=== PATIENT | female | born 1960 | race Caucasian/White ===

== ENCOUNTER → 2021-10-15 | Day surgery (SDC) | payer BC ==
[~2021-10-15] VITALS: Ht 167.6 cm; Wt 72.1 kg
[~2021-10-15] MED LIST: ASPIRIN 325 MG TAB ONE; ASPIRIN81 MG PO; CRESTOR10 MG PO; FARXIGA10 MG PO; FENTANYL CITRATE/PF 100MCG/2 ML INJ ONE; HEPARIN SOD (PORCINE) 1000 UNIT/ML 30ML ONE; HEPARIN SOD/SOD CHLORIDE 2,000 ML ONE; IOPAMIDOL 370 MG/ML 100 ML INFUS..BTL INJ ONE; JARDIANCE10 MG; LASIX40 MG PO; LIDOCAINE HCL 1% LOCAL INJ 20 ML VIAL ONE; MIDAZOLAM HCL 2 MG/2 ML VIAL ONE; NITROGLYCERIN/D5W 200 MCG/ML 250 ML ONE; SODIUM CHLORIDE 0.9% 1000ML 1,000 ML ONE; SYNTHROID50 MCG PO; TICAGRELOR 90 MG TABLET ONE; VERAPAMIL HCL 2.5 MG/ML 2 ML VIAL ONE
[2021-10-15 13:09] LABS: BASOPHILS % 0.5 % (0.0-1.0); EOSINOPHILS # (AUTO) 0.2 (0.0-0.4); EOSINOPHILS % 1.8 % (0.0-6.0); HEMOGLOBIN 15.4 g/dL (12.0-16.0); LYMPHOCYTES # (AUTO) 2.9 (1.0-3.2); LYMPHOCYTES % 34.8 % (18.0-39.1); MEAN CORPUSCULAR HEMOGLOBIN 27.8 pg (28-32); MEAN CORPUSCULAR HGB CONC 32.8 g/dL (31-35); MEAN CORPUSCULAR VOLUME 84.8 fL (81-99); MONOCYTES # (AUTO) 0.6 (0.2-0.8); MONOCYTES % 6.8 % (4.4-11.3); NEUTROPHILS # (AUTO) 4.6 (2.1-6.9); NEUTROPHILS % 55.9 % (38.7-80.0); PLATELET COUNT 200 x10e3/uL (140-360); RED BLOOD COUNT 5.54 x10e6/uL (3.6-5.1); RED CELL DISTRIBUTION WIDTH 13.1 % (11.7-14.4)
[2021-10-15 13:50] LABS: CHOL/HDL RATIO 4.7 (3.0-3.6)
[2021-10-15 13:53] LABS: ALBUMIN 3.1 g/dL (3.5-5.0); ALBUMIN/GLOBULIN RATIO 0.8 (0.8-2.0); ANION GAP 18.2 mmol/L (8-16); CALCIUM 9.3 mg/dL (8.4-10.2); CREATININE, SERUM 1.9 mg/dL (0.57-1.11); POTASSIUM 4.2 mmol/L (3.5-5.1)
[2021-10-15 13:57] LABS: INR 0.8; PROTHROMBIN TIME 11.8 seconds (11.9-14.5)
[2021-10-15 13:58] LABS: PARTIAL THROMBOPLASTIN TIME 27.9 seconds (23.8-35.5)
== END | disposition home or self-care (01) ==
LOC: CATH LAB 11:51
PROVIDERS: ATTEND Internal Medicine Cardiovascular Disease
DX: I25.10 Atherosclerotic heart disease of native coronary artery without angina pectoris (principal); R94.39 Abnormal result of other cardiovascular function study; I73.9 Peripheral vascular disease, unspecified; E78.00 Pure hypercholesterolemia, unspecified; E11.9 Type 2 diabetes mellitus without complications; E07.9 Disorder of thyroid, unspecified; Z20.822 Contact with and (suspected) exposure to COVID-19; Z79.82 Long term (current) use of aspirin; Z79.899 Other long term (current) drug therapy
CPT/HCPCS: 36415; 76937; 80053; 80061; 85025; 85610; 85730; 92928; 92929; C1725 ×2; C1769; C1874; C1887; J1644; J2001; J2250; J3010; J7030; Q9967; U0002; 92920; 92921; 93458; 99152; 99153

== ENCOUNTER 2022-02-21 08:32 | Inpatient (IN) | payer BC ==
[~2022-02-21] VITALS: Ht 167.6 cm; Wt 72.1 kg
[~2022-02-21 08:32] MED LIST changes: -ASPIRIN 325 MG TAB ONE; -FENTANYL CITRATE/PF 100MCG/2 ML INJ ONE; -HEPARIN SOD (PORCINE) 1000 UNIT/ML 30ML ONE; -HEPARIN SOD/SOD CHLORIDE 2,000 ML ONE; -IOPAMIDOL 370 MG/ML 100 ML INFUS..BTL INJ ONE; -LIDOCAINE HCL 1% LOCAL INJ 20 ML VIAL ONE; -MIDAZOLAM HCL 2 MG/2 ML VIAL ONE; -NITROGLYCERIN/D5W 200 MCG/ML 250 ML ONE; -SODIUM CHLORIDE 0.9% 1000ML 1,000 ML ONE; -TICAGRELOR 90 MG TABLET ONE; -VERAPAMIL HCL 2.5 MG/ML 2 ML VIAL ONE
[2022-02-21] MEDS ORDERED: DEXTROSE 50% SYRINGE 50 ML IV PRN (09:45)
[2022-02-21 09:57] LABS: BASOPHILS % 0.2 % (0.0-1.0); EOSINOPHILS % 0.1 % (0.0-6.0); HEMATOCRIT 30.6 % (34.2-44.1); HEMOGLOBIN 9.4 g/dL (12.0-16.0); LYMPHOCYTES % 7.7 % (18.0-39.1); MEAN CORPUSCULAR HEMOGLOBIN 27.6 pg (28-32); MEAN CORPUSCULAR HGB CONC 30.7 g/dL (31-35); MONOCYTES # (AUTO) 1.5 (0.2-0.8); MONOCYTES % 11.1 % (4.4-11.3); NEUTROPHILS # (AUTO) 10.7 (2.1-6.9); NEUTROPHILS % 80.4 % (38.7-80.0); PLATELET COUNT 251 x10e3/uL (140-360); RED CELL DISTRIBUTION WIDTH 12.7 % (11.7-14.4)
[2022-02-21 10:09] LABS: ALBUMIN 2.3 g/dL (3.5-5.0); ANION GAP 15.5 mmol/L (8-16); BILIRUBIN,DIRECT 0.1 mg/dL (0.0-0.5); CREATININE, SERUM 2.43 mg/dL (0.57-1.11); POTASSIUM 4.5 mmol/L (3.5-5.1)
[2022-02-21] MEDS: HYDROMORPHONE 1MG/1ML INJ IV PRN ×3 (10:23→20:07)
[2022-02-21 10:24] LABS: CHOL/HDL RATIO 3.2 (3.0-3.6)
[2022-02-21 10:39] VITALS: BP 132/83
[2022-02-21 11:20] VITALS: BP 132/83
[2022-02-21] MEDS: INSULIN REGULAR, HUMAN 100 UNIT/1 ML SQ SCH ×3 (11:50→19:54)
[2022-02-21] MEDS: Clindamycin INJ 300 MG/50 ML 50 ML IV SCH ×2 (12:27→22:26)
[2022-02-21 12:28] VITALS: BP 132/55
[2022-02-21] MEDS: ONDANSETRON HCL 4 MG ORAL DISINTEGRATING TAB PO PRN (14:37)
[2022-02-21 16:43] VITALS: BP 146/53
[2022-02-21] MEDS ORDERED: PLAVIX75 MG PO (18:42)
[2022-02-21] MEDS ORDERED: GLIPIZIDE5 MG PO (18:42)
[2022-02-21] MEDS ORDERED: LOSARTAN POTASS50 MG PO (18:42)
[2022-02-21] MEDS ORDERED: JARDIANCE25 MG (18:42)
[2022-02-21 20:00] VITALS: BP 161/66
[2022-02-21] MEDS ORDERED: PROMETHAZINE 12.5MG/ NACL 0.9% 12.5 MG/50 ML BAG IV PRN (20:00)
[2022-02-21] MEDS ORDERED: SODIUM CHLORIDE 0.9% 250ML 250 ML ONE (20:15)
[2022-02-21 21:00] VITALS: BP 161/66
[2022-02-21] MEDS: CRESTOR 10MG PO SCH (21:00)
[2022-02-22] VITALS (7 sets, daily range): BP systolic 101–168; BP diastolic 49–84
[2022-02-22] MEDS: ONDANSETRON HCL INJ 2MG/ML 2ML 2 MG/ML VIAL IV PRN ×5 (00:06→23:57)
[2022-02-22] MEDS: LEVOTHYROXINE SODIUM 25 MCG TABLET PO SCH (05:34)
[2022-02-22] MEDS: Clindamycin INJ 300 MG/50 ML 50 ML IV SCH ×3 (05:34→22:01)
[2022-02-22 06:27] LABS: BASOPHILS # (AUTO) 0.1 (0.0-0.1); BASOPHILS % 0.2 % (0.0-1.0); HEMATOCRIT 32.8 % (34.2-44.1); LYMPHOCYTES # (AUTO) 1.8 (1.0-3.2); LYMPHOCYTES % 8.1 % (18.0-39.1); MEAN CORPUSCULAR HEMOGLOBIN 27.4 pg (28-32); MEAN CORPUSCULAR HGB CONC 30.5 g/dL (31-35); MEAN CORPUSCULAR VOLUME 89.9 fL (81-99); MONOCYTES # (AUTO) 2.2 (0.2-0.8); NEUTROPHILS # (AUTO) 17.7 (2.1-6.9); NEUTROPHILS % 81.2 % (38.7-80.0); PLATELET COUNT 259 x10e3/uL (140-360); RED BLOOD COUNT 3.65 x10e6/uL (3.6-5.1); RED CELL DISTRIBUTION WIDTH 12.9 % (11.7-14.4)
[2022-02-22] MEDS ORDERED: LEVOTHYROXINE SODIUM 50 MCG TAB PO SCH (06:30)
[2022-02-22 06:38] LABS: ANION GAP 19.6 mmol/L (8-16); CALCIUM 8.5 mg/dL (8.4-10.2); CREATININE, SERUM 3.04 mg/dL (0.57-1.11); POTASSIUM 4.6 mmol/L (3.5-5.1)
[2022-02-22] MEDS: INSULIN REGULAR, HUMAN 100 UNIT/1 ML SQ SCH ×4 (07:30→22:01)
[2022-02-22] MEDS: ASPIRIN 81 MG CHEW TAB PO SCH (08:33)
[2022-02-22] MEDS: MUPIROCIN 2% OINT 22 GM TUBE TOP SCH (08:33)
[2022-02-22] MEDS: FUROSEMIDE 40 MG TAB PO SCH (08:33)
[2022-02-22 08:46] LABS: LYMPHOCYTES % (MANUAL) 8 % (19-48); MONOCYTES % (MANUAL) 10 % (3.4-9.0); NEUTROPHILS % (MANUAL) 82 % (40-74); PLATELET ESTIMATE ADEQUATE; PLATELET MORPHOLOGY COMMENT NORMAL; RBC MORPHOLOGY COMMENT NORMAL
[2022-02-22] MEDS ORDERED: SIMVASTATIN 40 MG TAB PO SCH (09:00)
[2022-02-22] MEDS: HYDROMORPHONE 1MG/1ML INJ IV PRN ×3 (12:01→22:03)
[2022-02-22] MEDS: CRESTOR 10MG PO SCH (20:59)
[2022-02-22] MEDS ORDERED: SODIUM CHLORIDE 0.9% 250ML 250 ML ONE (22:08)
[2022-02-23] VITALS (8 sets, daily range): BP systolic 115–154; BP diastolic 53–75
[2022-02-23] MEDS: HYDROMORPHONE 1MG/1ML INJ IV PRN ×7 (04:01→22:48)
[2022-02-23] MEDS: LEVOTHYROXINE SODIUM 25 MCG TABLET PO SCH (06:05)
[2022-02-23] MEDS: Clindamycin INJ 300 MG/50 ML 50 ML IV SCH ×3 (06:05→22:47)
[2022-02-23] MEDS: ONDANSETRON HCL INJ 2MG/ML 2ML 2 MG/ML VIAL IV PRN ×4 (07:28→19:49)
[2022-02-23] MEDS: INSULIN REGULAR, HUMAN 100 UNIT/1 ML SQ SCH ×4 (07:30→19:57)
[2022-02-23 07:48] LABS: BASOPHILS % 0.2 % (0.0-1.0); EOSINOPHILS % 0.2 % (0.0-6.0); HEMATOCRIT 32.9 % (34.2-44.1); HEMOGLOBIN 9.8 g/dL (12.0-16.0); LYMPHOCYTES # (AUTO) 0.8 (1.0-3.2); LYMPHOCYTES % 4.1 % (18.0-39.1); MEAN CORPUSCULAR HEMOGLOBIN 27.3 pg (28-32); MEAN CORPUSCULAR HGB CONC 29.8 g/dL (31-35); MEAN CORPUSCULAR VOLUME 91.6 fL (81-99); MONOCYTES # (AUTO) 1.7 (0.2-0.8); MONOCYTES % 9.1 % (4.4-11.3); NEUTROPHILS # (AUTO) 16.2 (2.1-6.9); NEUTROPHILS % 85.8 % (38.7-80.0); PLATELET COUNT 244 x10e3/uL (140-360); RED BLOOD COUNT 3.59 x10e6/uL (3.6-5.1); RED CELL DISTRIBUTION WIDTH 13.3 % (11.7-14.4)
[2022-02-23 08:07] LABS: ANION GAP 20.4 mmol/L (8-16); CALCIUM 8.6 mg/dL (8.4-10.2); CREATININE, SERUM 3.85 mg/dL (0.57-1.11); POTASSIUM 4.4 mmol/L (3.5-5.1)
[2022-02-23] MEDS: FUROSEMIDE 40 MG TAB PO SCH (10:02)
[2022-02-23] MEDS: ASPIRIN 81 MG CHEW TAB PO SCH (10:03)
[2022-02-23] MEDS: METOPROLOL TARTRATE 25 MG TAB PO SCH ×2 (10:03→16:33)
[2022-02-23] MEDS: MUPIROCIN 2% OINT 22 GM TUBE TOP SCH (14:12)
[2022-02-23] MEDS: CRESTOR 10MG PO SCH (22:46)
[2022-02-23] MEDS: ONDANSETRON HCL 4 MG ORAL DISINTEGRATING TAB PO PRN (22:47)
[2022-02-24 01:20] VITALS: BP 146/57
[2022-02-24] MEDS: ONDANSETRON HCL INJ 2MG/ML 2ML 2 MG/ML VIAL IV PRN ×2 (02:45→09:52)
[2022-02-24] MEDS: HYDROMORPHONE 1MG/1ML INJ IV PRN ×2 (02:53→05:51)
[2022-02-24] MEDS: Clindamycin INJ 300 MG/50 ML 50 ML IV SCH (05:31)
[2022-02-24] MEDS: LEVOTHYROXINE SODIUM 25 MCG TABLET PO SCH (05:31)
[2022-02-24] MEDS: ONDANSETRON HCL 4 MG ORAL DISINTEGRATING TAB PO PRN (05:31)
[2022-02-24 05:40] VITALS: BP 128/51
[2022-02-24 08:16] VITALS: BP 129/51
[2022-02-24 09:00] VITALS: BP 129/51
[2022-02-24] MEDS ORDERED: ACETAMINOPHEN/CODEINE 300MG - 30MG TAB PO PRN (09:00)
[2022-02-24] MEDS ORDERED: TRAMADOL HCL 50 MG TAB PO PRN (09:00)
[2022-02-24] MEDS ORDERED: CEPHALEXIN500 MG PO ×2 (09:05→09:50)
[2022-02-24] MEDS ORDERED: ULTRAM 50MG50 MG PO ×2 (09:05→09:50)
[2022-02-24] MEDS ORDERED: CLINDAMYCIN HC300 MG PO (09:05)
[2022-02-24] MEDS ORDERED: ACETAMINOPHEN-1 EAC4 PO ×2 (09:05→09:50)
[2022-02-24] MEDS ORDERED: PROBIOTIC & AC1 EACH PO ×2 (09:05→09:50)
[2022-02-24] MEDS ORDERED: SODIUM BICARBO650 MG PO ×2 (09:11→09:50)
[2022-02-24] MEDS ORDERED: CLINDAMYCIN HC300 MG PEG (09:50)
[2022-02-24] MEDS: ASPIRIN 81 MG CHEW TAB PO SCH (09:57)
[2022-02-24] MEDS: METOPROLOL TARTRATE 25 MG TAB PO SCH (09:58)
[2022-02-24] MEDS ORDERED: SODIUM CHLORIDE 0.9% 500ML 500 ML IV ONE (10:00)
[2022-02-24] MEDS ORDERED: SODIUM BICARBONATE 650 MG TAB PO SCH (10:00)
[2022-02-24] MEDS: INSULIN REGULAR, HUMAN 100 UNIT/1 ML SQ SCH (10:02)
[2022-02-24] MEDS: MUPIROCIN 2% OINT 22 GM TUBE TOP SCH (11:27)
== END 2022-02-24 11:48 | disposition home or self-care (01) | DRG 638 ==
LOC: MED/SURG3 08:32
PROVIDERS: ADMIT Internal Medicine; ATTEND Internal Medicine
DX: E11.621 Type 2 diabetes mellitus with foot ulcer (principal); L97.516 Non-pressure chronic ulcer of other part of right foot with bone involvement without evidence of necrosis; S92.351A Displaced fracture of fifth metatarsal bone, right foot, initial encounter for closed fracture; X58.XXXA Exposure to other specified factors, initial encounter; E11.610 Type 2 diabetes mellitus with diabetic neuropathic arthropathy; I25.10 Atherosclerotic heart disease of native coronary artery without angina pectoris; E03.9 Hypothyroidism, unspecified; E11.22 Type 2 diabetes mellitus with diabetic chronic kidney disease; N18.4 Chronic kidney disease, stage 4 (severe); I13.10 Hypertensive heart and chronic kidney disease without heart failure, with stage 1 through stage 4 chronic kidney disease, or unspecified chronic kidney disease; Z95.5 Presence of coronary angioplasty implant and graft; L40.9 Psoriasis, unspecified; E11.69 Type 2 diabetes mellitus with other specified complication; E78.2 Mixed hyperlipidemia; Z87.891 Personal history of nicotine dependence; H40.89 Other specified glaucoma; H54.7 Unspecified visual loss; Z20.822 Contact with and (suspected) exposure to COVID-19
CPT/HCPCS: 36415; 80048; 80061; 80076; 82948; 83036; 85025; 93925; 96372; 99252; J1170; J1817; J2405; J2543; J2550; J7040; J7050; Q0162

== ENCOUNTER → 2022-05-17 | Outpatient (CLI) | payer BC ==
[~2022-05-17] MED LIST changes: +ACETAMINOPHEN-1 EAC4 PO; +CEPHALEXIN500 MG PO; +CLINDAMYCIN HC300 MG PEG; +CLINDAMYCIN HC300 MG PO; +COLLAGENASE OINTMENT 30 GM TUBE ONE; +GLIPIZIDE5 MG PO; +JARDIANCE25 MG; +LOSARTAN POTASS50 MG PO; +PLAVIX75 MG PO; +PROBIOTIC & AC1 EACH PO; +SODIUM BICARBO650 MG PO; +ULTRAM 50MG50 MG PO
== END ==
LOC: WCC 10:30
PROVIDERS: ATTEND Family Medicine Adult Medicine
DX: E11.621 Type 2 diabetes mellitus with foot ulcer (principal); M86.171 Other acute osteomyelitis, right ankle and foot; L97.413 Non-pressure chronic ulcer of right heel and midfoot with necrosis of muscle; R60.0 Localized edema

== ENCOUNTER → 2022-05-26 | Day surgery (SDC) | payer BC ==
[2022-05-24 08:51] LABS: BASOPHILS # (AUTO) 0.1 (0.0-0.1); BASOPHILS % 0.6 % (0.0-1.0); EOSINOPHILS # (AUTO) 0.2 (0.0-0.4); EOSINOPHILS % 2.2 % (0.0-6.0); HEMATOCRIT 32.2 % (34.2-44.1); LYMPHOCYTES # (AUTO) 1.6 (1.0-3.2); LYMPHOCYTES % 19.9 % (18.0-39.1); MEAN CORPUSCULAR HEMOGLOBIN 26.5 pg (28-32); MEAN CORPUSCULAR HGB CONC 31.1 g/dL (31-35); MEAN CORPUSCULAR VOLUME 85.2 fL (81-99); MONOCYTES # (AUTO) 0.7 (0.2-0.8); MONOCYTES % 8.9 % (4.4-11.3); NEUTROPHILS # (AUTO) 5.6 (2.1-6.9); NEUTROPHILS % 68.2 % (38.7-80.0); PLATELET COUNT 166 x10e3/uL (140-360); RED BLOOD COUNT 3.78 x10e6/uL (3.6-5.1); RED CELL DISTRIBUTION WIDTH 15.5 % (11.7-14.4)
[2022-05-24 09:05] LABS: INR 0.88; PROTHROMBIN TIME 12.4 seconds (11.9-14.5)
[2022-05-24 09:12] LABS: ALBUMIN 2.5 g/dL (3.5-5.0); ALBUMIN/GLOBULIN RATIO 0.7 (0.8-2.0); ANION GAP 14.9 mmol/L (8-16); CALCIUM 8.6 mg/dL (8.4-10.2); CHOL/HDL RATIO 2.4 (3.0-3.6); CREATININE, SERUM 2.16 mg/dL (0.57-1.11); POTASSIUM 3.9 mmol/L (3.5-5.1)
[2022-05-26] VITALS (26 sets, daily range): BP systolic 141–192; BP diastolic 66–123
[~2022-05-26] MED LIST changes: +ASPIRIN 325 MG TAB ONE; +CLONIDINE HCL0.2 MG PO; +CLOPIDOGREL BISULFATE 75 MG TAB ONE; -COLLAGENASE OINTMENT 30 GM TUBE ONE; +DOCUSATE SODIU100 MG PO; +DOXYCYCLINE HY100 MG PO; +FENTANYL CITRATE/PF 100MCG/2 ML INJ ONE; +FLOMAX0.4 MG PO; +HEPARIN SOD (PORCINE) 1000 UNIT/ML 30ML ONE; +HEPARIN SOD/SOD CHLORIDE 2,000 ML ONE; +HYDRALAZINE HCL 20 MG/ML VIAL IV STA; +IOPAMIDOL 370 MG/ML 100 ML INFUS..BTL INJ ONE; +LABETALOL HCL200 MG PO; +LIDOCAINE HCL 2% LOCAL 20 ML VIAL ONE; +METOPROLOL TART25 MG PO; +MIDAZOLAM HCL 2 MG/2 ML VIAL ONE; +NEURONTIN300 MG PO; +NITROGLYCERIN/D5W 200 MCG/ML 250 ML ONE; +ONDANSETRON HCL INJ 2MG/ML 2ML 2 MG/ML VIAL IV STA; +PROCARDIA XL30 MG; +SENNA LAX8.6 MG PO; +SODIUM CHLORIDE 0.9% 1000ML 1,000 ML ONE; +TORSEMIDE20 MG PO; +VERAPAMIL HCL 2.5 MG/ML 2 ML VIAL ONE; +VITAMIN D325 MCG
== END | disposition home or self-care (01) ==
LOC: CATH LAB 08:24
PROVIDERS: ATTEND Internal Medicine Cardiovascular Disease
DX: I70.201 Unspecified atherosclerosis of native arteries of extremities, right leg (principal); I25.10 Atherosclerotic heart disease of native coronary artery without angina pectoris; R94.30 Abnormal result of cardiovascular function study, unspecified; R07.2 Precordial pain; I10 Essential (primary) hypertension; E78.00 Pure hypercholesterolemia, unspecified; E11.9 Type 2 diabetes mellitus without complications; N19 Unspecified kidney failure; Z01.812 Encounter for preprocedural laboratory examination; Z99.2 Dependence on renal dialysis; Z79.02 Long term (current) use of antithrombotics/antiplatelets; Z79.82 Long term (current) use of aspirin; Z79.899 Other long term (current) drug therapy; Z82.49 Family history of ischemic heart disease and other diseases of the circulatory system; Z83.3 Family history of diabetes mellitus
CPT/HCPCS: 36415 ×2; 37225; 75625; 80053; 80061; 82948; 85025; 85610; C1724; C1769 ×3; C1887 ×3; C1894; C2623 ×2; J1644; J2001; J2250; J3010; J7030; Q9967; 37224; 75716; 99152; 99153

== ENCOUNTER → 2023-01-12 | Day surgery (SDC) | payer BC ==
[2023-01-10 09:37] LABS: BASOPHILS % 0.8 % (0.0-1.0); EOSINOPHILS # (AUTO) 0.1 (0.0-0.4); EOSINOPHILS % 2.7 % (0.0-6.0); HEMATOCRIT 42.3 % (34.2-44.1); HEMOGLOBIN 13.5 g/dL (12.0-16.0); LYMPHOCYTES # (AUTO) 1.2 (1.0-3.2); MEAN CORPUSCULAR HEMOGLOBIN 28.9 pg (28-32); MEAN CORPUSCULAR HGB CONC 31.9 g/dL (31-35); MEAN CORPUSCULAR VOLUME 90.6 fL (81-99); MONOCYTES # (AUTO) 0.5 (0.2-0.8); MONOCYTES % 9.5 % (4.4-11.3); NEUTROPHILS % 62.8 % (38.7-80.0); PLATELET COUNT 137 x10e3/uL (140-360); RED BLOOD COUNT 4.67 x10e6/uL (3.6-5.1); RED CELL DISTRIBUTION WIDTH 16.9 % (11.7-14.4); WHITE BLOOD COUNT 4.83 x10e3/uL (4.8-10.8)
[2023-01-10 10:01] LABS: ALBUMIN 3.1 g/dL (3.5-5.0); ALBUMIN/GLOBULIN RATIO 1.1 (0.8-2.0); ANION GAP 15.3 mmol/L (8-16); BILIRUBIN,TOTAL 0.7 mg/dL (0.2-1.2); CALCIUM 8.2 mg/dL (8.4-10.2); CHOL/HDL RATIO 2.7 (3.0-3.6); CREATININE, SERUM 3.93 mg/dL (0.57-1.11); POTASSIUM 4.3 mmol/L (3.5-5.1); TOTAL PROTEIN 5.9 g/dL (6.5-8.1)
[~2023-01-12] VITALS: Ht 167.6 cm; Wt 86.2 kg
[2023-01-12] VITALS (17 sets, daily range): BP systolic 141–177; BP diastolic 59–73; PULSE 64–70; RESP 8–14; TEMP 97.4; O2SAT 100
[~2023-01-12] MED LIST changes: -ASPIRIN 325 MG TAB ONE; +HEPARIN SOD/SOD CHLORIDE 1,000 ML ONE; -HEPARIN SOD/SOD CHLORIDE 2,000 ML ONE; -HYDRALAZINE HCL 20 MG/ML VIAL IV STA; +LIDOCAINE 1% W/EPINEPHRINE 20 ML VIAL ONE; -ONDANSETRON HCL INJ 2MG/ML 2ML 2 MG/ML VIAL IV STA; +ONDANSETRON HCL INJ 2MG/ML 2ML 2 MG/ML VIAL ONE; -SODIUM CHLORIDE 0.9% 1000ML 1,000 ML ONE; +SODIUM CHLORIDE 0.9% 1000ML 2,000 ML ONE; +TRULICITY1.5 MG/0.5
== END | disposition home or self-care (01) ==
LOC: CATH LAB 06:21
PROVIDERS: ATTEND Internal Medicine Cardiovascular Disease
DX: I70.202 Unspecified atherosclerosis of native arteries of extremities, left leg (principal); I25.10 Atherosclerotic heart disease of native coronary artery without angina pectoris; E78.2 Mixed hyperlipidemia; E11.9 Type 2 diabetes mellitus without complications; Z71.3 Dietary counseling and surveillance; Z71.82 Exercise counseling; Z01.812 Encounter for preprocedural laboratory examination; Z79.02 Long term (current) use of antithrombotics/antiplatelets; Z79.82 Long term (current) use of aspirin; Z79.84 Long term (current) use of oral hypoglycemic drugs; Z79.85 Long-term (current) use of injectable non-insulin antidiabetic drugs; Z79.899 Other long term (current) drug therapy; Z68.30 Body mass index [BMI] 30.0-30.9, adult; Z82.49 Family history of ischemic heart disease and other diseases of the circulatory system; Z83.3 Family history of diabetes mellitus
CPT/HCPCS: 36415 ×2; 37227; 37228; 75625; 76937; 80053; 80061; 82948; 85025; C1724; C1725 ×4; C1760; C1769 ×4; C1876 ×3; C1887 ×2; C1894; C2623; J1644; J2001; J2250; J2405; J3010; J7030; Q9967; 37224; 75716; 93454; 99152; 99153

== ENCOUNTER 2024-11-14 09:19 | Inpatient (IN) | payer BC, MEDICARE ==
[2024-11-14] VITALS (8 sets, daily range): BP systolic 105–150; BP diastolic 44–69; PULSE 67–86; RESP 14–18; TEMP 97.9–98.5; O2SAT 97–99
[~2024-11-14] VITALS: Ht 167.6 cm; Wt 80.7 kg
[~2024-11-14 09:19] MED LIST changes: -CLOPIDOGREL BISULFATE 75 MG TAB ONE; -FENTANYL CITRATE/PF 100MCG/2 ML INJ ONE; -HEPARIN SOD (PORCINE) 1000 UNIT/ML 30ML ONE; -HEPARIN SOD/SOD CHLORIDE 1,000 ML ONE; -IOPAMIDOL 370 MG/ML 100 ML INFUS..BTL INJ ONE; -LIDOCAINE 1% W/EPINEPHRINE 20 ML VIAL ONE; -LIDOCAINE HCL 2% LOCAL 20 ML VIAL ONE; -MIDAZOLAM HCL 2 MG/2 ML VIAL ONE; -NITROGLYCERIN/D5W 200 MCG/ML 250 ML ONE; -ONDANSETRON HCL INJ 2MG/ML 2ML 2 MG/ML VIAL ONE; -SODIUM CHLORIDE 0.9% 1000ML 2,000 ML ONE; -VERAPAMIL HCL 2.5 MG/ML 2 ML VIAL ONE
[2024-11-14] MEDS: ONDANSETRON HCL INJ 2MG/ML 2ML 2 MG/ML VIAL IV STA (10:47)
[2024-11-14] MEDS: Morphine 4mg INJECTION 4 MG/ML INJ IV STA (10:48)
[2024-11-14 11:01] LABS: BASOPHILS % 0.6 % (0.0-1.0); EOSINOPHILS % 3.1 % (0.0-6.0); LYMPHOCYTES % 11.2 % (18.0-39.1); MONOCYTES % 7.8 % (4.4-11.3); NEUTROPHILS % 76.7 % (38.7-80.0); RED CELL DISTRIBUTION WIDTH 14.7 % (11.7-14.4)
[2024-11-14 11:22] LABS: INR 1.04
[2024-11-14 11:36] LABS: EST GLOMERULAR FILTRATION RATE 4.0 ML/MIN (>=60)
[2024-11-14] MEDS ORDERED: DEXTROSE 50% SYRINGE 50 ML IV PRN (12:15)
[2024-11-14] MEDS: Morphine 4mg INJECTION 4 MG/ML INJ IV PRN (16:25)
[2024-11-14] MEDS: ONDANSETRON HCL INJ 2MG/ML 2ML 2 MG/ML VIAL IV PRN (16:25)
[2024-11-14] MEDS ORDERED: CYCLOBENZAPRINE10 MG PO (16:51)
[2024-11-14] MEDS ORDERED: ALBUMIN 25% 12.5GM 0.25 GM/ML BTL IV PRN (17:15)
[2024-11-14] MEDS ORDERED: SODIUM CHLORIDE 0.9% 1000ML 2,000 ML IV PRN (17:15)
[2024-11-14] MEDS: INSULIN LISPRO 100 UNIT/1 ML 3ML VIAL SQ SCH (18:04)
[2024-11-14] MEDS: LABETALOL HCL 200 MG TAB PO SCH (21:17)
[2024-11-15] MEDS: LEVOTHYROXINE SODIUM 25 MCG TABLET PO SCH (06:18)
[2024-11-15 07:06] LABS: EST GLOMERULAR FILTRATION RATE 6.0 ML/MIN (>=60)
[2024-11-15 07:22] LABS: BASOPHILS % 0.8 % (0.0-1.0); EOSINOPHILS % 3.3 % (0.0-6.0); LYMPHOCYTES % 23.8 % (18.0-39.1); MONOCYTES % 11.9 % (4.4-11.3); NEUTROPHILS % 59.7 % (38.7-80.0); RED CELL DISTRIBUTION WIDTH 14.9 % (11.7-14.4)
[2024-11-15 07:48] VITALS: BP 144/55; PULSE 76; RESP 18; TEMP 98.1; O2SAT 98
[2024-11-15] MEDS ORDERED: ASPIRIN 81 MG CHEW TAB PO SCH (09:00)
[2024-11-15] MEDS ORDERED: CLOPIDOGREL BISULFATE 75 MG TAB PO SCH (09:00)
[2024-11-15] MEDS: SENNOSIDES 8.6 MG TAB PO SCH (09:20)
[2024-11-15] MEDS: GABAPENTIN 300 MG CAP PO SCH (09:20)
[2024-11-15] MEDS: GLIPIZIDE 5 MG TAB PO SCH (09:20)
[2024-11-15 12:00] VITALS: BP 191/58; PULSE 80; RESP 17; TEMP 98; O2SAT 96
[2024-11-15 16:00] VITALS: BP 104/50; PULSE 88; RESP 17; TEMP 98.3; O2SAT 99
[2024-11-15 20:00] VITALS: BP_SYST 104; BP_SYST 150; BP_DIAS 50; BP_DIAS 63; PULSE 69; PULSE 82; RESP 17; RESP 18; TEMP 97.9; TEMP 98.3; O2SAT 99
[2024-11-15 20:03] VITALS: BP 168/47; PULSE 97; RESP 20; TEMP 97.9; O2SAT 95
[2024-11-15 21:00] VITALS: BP 168/47; PULSE 97; RESP 20; TEMP 97.9; O2SAT 95
[2024-11-16] VITALS (8 sets, daily range): BP systolic 110–169; BP diastolic 43–69; PULSE 61–97; RESP 16–20; TEMP 97.2–98.5; O2SAT 94–98
[2024-11-16 06:11] LABS: HEPATITIS B CORE AB TOTAL Negative (Negative)
[2024-11-16] MEDS: LABETALOL HCL 200 MG TAB PO SCH (17:30)
[2024-11-17] VITALS (9 sets, daily range): BP systolic 83–155; BP diastolic 50–97; PULSE 59–87; RESP 16–18; TEMP 97.2–98.5; O2SAT 92–100
[2024-11-17 11:49] LABS: HEPATITIS B CORE IGM (P) Negative (Negative)
[2024-11-17 19:36] LABS: HEPATITIS B SURFACE AG (P) NEGATIVE
[2024-11-17 19:37] LABS: HEPATITIS B SURFACE AB QUANT 5.1; HEPATITIS BE ANTIGEN NEGATIVE
[2024-11-18] VITALS (7 sets, daily range): BP systolic 109–135; BP diastolic 46–71; PULSE 59–74; RESP 16–19; TEMP 97.3–98.9; O2SAT 96–100
[2024-11-18 11:34] LABS: BASOPHILS % 0.6 % (0.0-1.0); EOSINOPHILS % 2.5 % (0.0-6.0); LYMPHOCYTES % 15.0 % (18.0-39.1); MONOCYTES % 8.0 % (4.4-11.3); NEUTROPHILS % 73.3 % (38.7-80.0); RED CELL DISTRIBUTION WIDTH 14.6 % (11.7-14.4)
[2024-11-18 11:51] LABS: EST GLOMERULAR FILTRATION RATE 8.0 ML/MIN (>=60)
[2024-11-18] MEDS: HYDROCODONE/APAP 10MG-325MG TAB PO PRN (16:32)
[2024-11-19 02:54] LABS: HEPATITIS BE ANTIBODY Non Reactive (Negative)
[2024-11-19 07:45] VITALS: BP 163/52; PULSE 66; RESP 20; TEMP 97.7; O2SAT 100
[2024-11-19 08:41] VITALS: BP 163/52; PULSE 66; RESP 20; TEMP 97.7; O2SAT 100
[2024-11-19] MEDS: LABETALOL HCL 100 MG TAB PO SCH (08:59)
[2024-11-19 12:01] VITALS: BP 142/54; PULSE 69; RESP 20; TEMP 97.5; O2SAT 98
[2024-11-19 15:22] VITALS: BP 149/53; PULSE 60; RESP 19; TEMP 97.7; O2SAT 99
[2024-11-19] MEDS: LOSARTAN POTASSIUM 100 MG TAB PO ONE (17:10)
[2024-11-19 20:00] VITALS: BP 153/52; PULSE 66; RESP 16; TEMP 97; O2SAT 100
[2024-11-19 21:00] VITALS: BP 153/52; PULSE 66; RESP 16; TEMP 97; O2SAT 100
[2024-11-20] VITALS (7 sets, daily range): BP systolic 121–165; BP diastolic 44–66; PULSE 58–64; RESP 16–20; TEMP 97.3–98.6; O2SAT 97–100
[2024-11-20 06:16] LABS: BASOPHILS % 0.8 % (0.0-1.0); EOSINOPHILS % 3.8 % (0.0-6.0); LYMPHOCYTES % 20.8 % (18.0-39.1); MONOCYTES % 9.5 % (4.4-11.3); NEUTROPHILS % 64.3 % (38.7-80.0); RED CELL DISTRIBUTION WIDTH 14.3 % (11.7-14.4)
[2024-11-20 06:48] LABS: EST GLOMERULAR FILTRATION RATE 6.0 ML/MIN (>=60)
[2024-11-20] MEDS: LOSARTAN POTASSIUM 100 MG TAB PO SCH (08:57)
[2024-11-21] VITALS (7 sets, daily range): BP systolic 114–163; BP diastolic 56–83; PULSE 63–73; RESP 18–20; TEMP 97.6–98.9; O2SAT 96–100
[2024-11-21] MEDS: HYDROMORPHONE 1MG/1ML INJ IV PRN (08:28)
[2024-11-21] MEDS: HYDROCODONE/APAP 10MG-325MG TAB PO PRN (18:19)
== END 2024-11-21 20:58 | DRG 551 ==
LOC: ER 09:28 → ERHOLD 12:05 → MED/SURG3 17:52
PROVIDERS: ADMIT Internal Medicine; ATTEND Internal Medicine
PROC: 5A1D70Z Performance of Urinary Filtration, Intermittent, Less than 6 Hours Per Day (ICD-10-PCS; principal; 2024-11-14)
PROC: 5A1D70Z Performance of Urinary Filtration, Intermittent, Less than 6 Hours Per Day (ICD-10-PCS; 2024-11-18)
PROC: 5A1D70Z Performance of Urinary Filtration, Intermittent, Less than 6 Hours Per Day (ICD-10-PCS; 2024-11-20)
DX: S32.10XA Unspecified fracture of sacrum, initial encounter for closed fracture (principal); N18.6 End stage renal disease; S32.512A Fracture of superior rim of left pubis, initial encounter for closed fracture; S32.059A Unspecified fracture of fifth lumbar vertebra, initial encounter for closed fracture; I12.0 Hypertensive chronic kidney disease with stage 5 chronic kidney disease or end stage renal disease; L97.419 Non-pressure chronic ulcer of right heel and midfoot with unspecified severity; E11.65 Type 2 diabetes mellitus with hyperglycemia; E11.22 Type 2 diabetes mellitus with diabetic chronic kidney disease; Z99.2 Dependence on renal dialysis; D63.1 Anemia in chronic kidney disease; E11.621 Type 2 diabetes mellitus with foot ulcer; M25.552 Pain in left hip; R26.2 Difficulty in walking, not elsewhere classified; Z79.84 Long term (current) use of oral hypoglycemic drugs; E03.9 Hypothyroidism, unspecified; H40.9 Unspecified glaucoma; H54.8 Legal blindness, as defined in USA; W19.XXXA Unspecified fall, initial encounter; Y92.009 Unspecified place in unspecified non-institutional (private) residence as the place of occurrence of the external cause; Z79.02 Long term (current) use of antithrombotics/antiplatelets; Z79.82 Long term (current) use of aspirin; Z79.899 Other long term (current) drug therapy
CPT/HCPCS: 36415; 70450; 71045; 72131; 72192; 80048; 80053; 82948; 83735; 84484; 85025; 85610; 85730; 86704; 86705; 86706; 86707; 87340; 87350; 93005; 96372; 99252; 99284; J1171; J2270; J2405; J7030